=== PATIENT | male | born 1970 | race Caucasian/White ===

== ENCOUNTER 2017-09-15 11:23 | Emergency (ER) | payer OTHER ==
[~2017-09-15] VITALS: Ht 182.9 cm; Wt 102.1 kg
[2017-09-15 14:27] LABS: HEMATOCRIT 43.1 % (38.0-50.0); HEMOGLOBIN 15.2 G/DL (12.5-16.6); MCHC 35.3 G/DL (30.0-36.0); MCV 93.5 FL (86-99); PLATELET COUNT 196 K/uL (156-360); RBC DIS.WIDTH-CV 13.1 % (11.8-14.6); RBC DIS.WIDTH-SD 44.9 % (39-53); RED BLOOD COUNT 4.61 M/uL (4.00-5.50); WHITE BLOOD COUNT 9.2 K/uL (4.1-10.2)
[2017-09-15 14:39] LABS: ALBUMIN 4.1 g/dL (3.2-4.8); CHLORIDE 102 mEq/L (99-109); POTASSIUM 4.3 mEq/L (3.7-5.4); SODIUM 136 mEq/L (136-147)
[2017-09-15 14:41] LABS: GLUCOSE 103 mg/dL (70-99); TOTAL PROTEIN 6.8 g/dL (6.4-8.3)
[2017-09-15 14:45] LABS: ALKALINE PHOSPHATASE 64 IU/L (3-129); GFR ESTIMATE (CALCULATED) > 59 mL/min/ (58.99-99999)
[2017-09-15 14:46] LABS: UREA NITROGEN (BUN) 16 mg/dL (9-23)
[2017-09-15 14:47] LABS: AST (GOT) 27 IU/L (2-34)
[2017-09-15 14:48] LABS: ALT (GPT) 23 IU/L (3-49)
[2017-09-15] MEDS ORDERED: ULTRAM50 MG PO (16:23)
[2017-09-15] MEDS ORDERED: FLEXERIL10 MG PO (16:23)
[2017-09-15 16:41] VITALS: BP 129/75
== END 2017-09-15 16:42 | disposition home or self-care (01) ==
LOC: EME 11:23
PROVIDERS: Physician Assistant
DX: M62.838 Other muscle spasm (principal); S30.1XXA Contusion of abdominal wall, initial encounter; S10.93XA Contusion of unspecified part of neck, initial encounter; V47.5XXA Car driver injured in collision with fixed or stationary object in traffic accident, initial encounter; Y92.410 Unspecified street and highway as the place of occurrence of the external cause; Y93.84 Activity, sleeping; F17.200 Nicotine dependence, unspecified, uncomplicated
CPT/HCPCS: 70491; 72100; 74177; 80053; 85027; 99281; 99284